=== PATIENT | male | born 1975 | race Caucasian/White ===

== ENCOUNTER 2020-06-07 12:53 | Outpatient (REF) | payer OTHER, SELFPAY | END 2020-06-07 12:54 | disposition home or self-care (01) | LOC: HO.BBR 12:53 | PROVIDERS: PCP Internal Medicine; Visit Provider Internal Medicine | DX: D75.1 Secondary polycythemia (principal) | CPT/HCPCS: 36415; 85014; 85018; 99195 ==

== ENCOUNTER 2020-08-22 14:54 | Outpatient (REF) | payer OTHER, SELFPAY | END 2020-08-22 14:55 | disposition home or self-care (01) | LOC: HO.BBR 14:54 | PROVIDERS: Visit Provider Internal Medicine | DX: D75.1 Secondary polycythemia (principal) | CPT/HCPCS: 36415; 85018; 99195 ==

== ENCOUNTER 2020-10-25 14:02 | Outpatient (REF) | payer OTHER, SELFPAY | END 2020-10-25 14:03 | disposition home or self-care (01) | LOC: HO.BBR 14:02 | PROVIDERS: Visit Provider Internal Medicine | DX: D75.1 Secondary polycythemia (principal) | CPT/HCPCS: 36415; 85014; 85018; 99195 ==

== ENCOUNTER 2021-03-17 14:42 | Outpatient (REF) | payer OTHER, SELFPAY | END 2021-03-17 14:43 | disposition home or self-care (01) | LOC: HO.BBR 14:42 | PROVIDERS: Visit Provider Internal Medicine | DX: D75.1 Secondary polycythemia (principal) | CPT/HCPCS: 85014; 85018; 99195 ==

== ENCOUNTER 2021-06-20 13:49 | Outpatient (REF) | payer OTHER, SELFPAY | END 2021-06-20 13:50 | disposition home or self-care (01) | LOC: HO.BBR 13:49 | PROVIDERS: Visit Provider Internal Medicine | DX: D75.1 Secondary polycythemia (principal) | CPT/HCPCS: 85018; 99195 ==

== ENCOUNTER 2021-09-19 14:07 | Outpatient (REF) | payer OTHER, SELFPAY | END 2021-09-19 14:08 | disposition home or self-care (01) | LOC: HO.BBR 14:07 | PROVIDERS: Visit Provider Internal Medicine | DX: Z13.89 Encounter for screening for other disorder (principal) ==

== ENCOUNTER 2022-01-02 11:10 | Outpatient (REF) | payer OTHER, SELFPAY | END 2022-01-02 11:11 | disposition home or self-care (01) | LOC: HO.BBR 11:10 | PROVIDERS: Visit Provider Internal Medicine | DX: D75.1 Secondary polycythemia (principal) | CPT/HCPCS: 85018; 99195 ==

== ENCOUNTER 2022-03-06 13:51 | Outpatient (REF) | payer OTHER, SELFPAY | END 2022-03-06 13:52 | disposition home or self-care (01) | LOC: HO.BBR 13:51 | PROVIDERS: Visit Provider Internal Medicine | DX: D75.1 Secondary polycythemia (principal) | CPT/HCPCS: 85018; 99195 ==

== ENCOUNTER 2022-08-21 10:56 | Outpatient (REF) | payer OTHER, SELFPAY | END 2022-08-21 10:57 | disposition home or self-care (01) | LOC: HO.BBR 10:56 | PROVIDERS: Visit Provider Internal Medicine | DX: D75.1 Secondary polycythemia (principal) | CPT/HCPCS: 85018; 99195 ==

== ENCOUNTER 2023-01-13 13:34 | Outpatient (REF) | payer OTHER, SELFPAY | END 2023-01-13 13:35 | disposition home or self-care (01) | LOC: HO.BBR 13:34 | PROVIDERS: Visit Provider Internal Medicine | DX: D75.1 Secondary polycythemia (principal) | CPT/HCPCS: 85014; 85018; 99195 ==

== ENCOUNTER 2023-03-26 10:57 | Outpatient (REF) | payer OTHER, SELFPAY | END 2023-03-26 10:58 | disposition home or self-care (01) | LOC: HO.BBR 10:57 | PROVIDERS: Visit Provider Internal Medicine | DX: D75.1 Secondary polycythemia (principal) | CPT/HCPCS: 85018; 99195 ==

== ENCOUNTER 2023-05-24 14:05 | Outpatient (REF) | payer OTHER, SELFPAY | END 2023-05-24 14:06 | disposition home or self-care (01) | LOC: HO.BBR 14:05 | PROVIDERS: Visit Provider Internal Medicine | DX: D75.1 Secondary polycythemia (principal) | CPT/HCPCS: 85018; 99195 ==

== ENCOUNTER 2023-07-30 12:31 | Outpatient (REF) | payer OTHER, SELFPAY | END 2023-07-30 12:32 | disposition home or self-care (01) | LOC: HO.BBR 12:31 | PROVIDERS: Visit Provider Internal Medicine | DX: D75.1 Secondary polycythemia (principal) | CPT/HCPCS: 85014; 85018; 99195 ==

== ENCOUNTER 2023-09-28 13:53 | Outpatient (REF) | payer OTHER, SELFPAY | END 2023-09-28 13:54 | disposition home or self-care (01) | LOC: HO.BBR 13:53 | PROVIDERS: Visit Provider Internal Medicine | DX: D75.1 Secondary polycythemia (principal) | CPT/HCPCS: 85018; 99195 ==

== ENCOUNTER 2023-12-01 14:08 | Outpatient (REF) | payer OTHER, SELFPAY | END 2023-12-01 14:09 | disposition home or self-care (01) | LOC: HO.BBR 14:08 | PROVIDERS: Visit Provider Internal Medicine | DX: D75.1 Secondary polycythemia (principal) | CPT/HCPCS: 85018; 99195 ==

== ENCOUNTER 2024-03-22 13:30 | Outpatient (REF) | payer OTHER, SELFPAY | END 2024-03-22 13:31 | disposition home or self-care (01) | LOC: HO.BBR 13:30 | PROVIDERS: Visit Provider Internal Medicine | DX: D75.1 Secondary polycythemia (principal) | CPT/HCPCS: 85014; 85018; 99195 ==

== ENCOUNTER 2024-05-29 14:07 | Outpatient (REF) | payer OTHER, SELFPAY | END 2024-05-29 14:08 | disposition home or self-care (01) | LOC: HO.BBR 14:07 | PROVIDERS: Visit Provider Internal Medicine | DX: D75.1 Secondary polycythemia (principal) | CPT/HCPCS: 85018; 99195 ==

== ENCOUNTER 2024-07-31 14:01 | Outpatient (REF) | payer OTHER, SELFPAY ==
--- OUTSIDE RECORDS SUMMARY | 2024-07-31 18:31 | XMS_ITS | Clinical Summary ---
Author Organization [facility] Facility Address [address] [place] [address] Care Team Providers Care Roll Scale Man Name Role Phone Viviana Kaur Primary Care Provider [phone] Family History Medical History Relation Comments Hypertension Father Hypertension Mother Kidney disease Mother kidney stones Relation Status Comments Father Mother Social History Tobacco Use Types Packs/Day Years Used Date Smoking Tobacco: Never Alcohol Use Standard Drinks/Week Comments No 0 (1 standard drink = 0.6 oz pur e alcohol) Sex and Gender Information Value Date Recorded Sex Assigned at Not on file Legal Sex Male 5:17 PM EST Gender Identity Not on file Sexual Orientation Not on file Plan of Treatment Health Maintenance Due Date Last Done Comments Hepatitis B Vaccine (1 of 3 - 19+ 3-dose series) 1992 Colorectal Cancer Screening: Annual FOBT 2022 Colorectal Cancer Screening: Colonoscopy 2022 Colorectal Cancer Screening: Sigmoidoscopy 2022 Influenza Vaccine (#1) 2024 Pneumococcal Vaccine: Pediat rics (0 to 5 Years) and At-Risk Patients (6 to 64 Years) Aged Out No longer eligible b ased on patient's age to complete this topic Insurance [facility] Care Teams Roll Scale Man Relationship Specialty Start Date End Date Viviana Kaur PA [address] [facility] 100 [place] [address] PCP - General Urology 06/02/22
--- OUTSIDE RECORDS SUMMARY | 2024-07-31 18:31 | XMS_ITS | Encounter Summary ---
Author Organization [facility] Address [address] [place] [address] Care Team Providers Care Champagne Maker Name Role Phone Samuel Chao MD Primary Care Provider Reason for Visit * Reason Onset Date Comments medication 07/13/2024 Encounter Details Date Type Department Care Team ([facility] Contact Info) Description 07/13/2024 Telephone Gastroenterology - [place] [address] [facility] [address] [place] [phone] Serafin Cui DO [address] [facility] 200 [place] [address] medication Social History Tobacco Use Types Packs/Day Years Used Date Smoking Tobacco: Never Smokeless Tobacco: Never Alcohol Use Standard Drinks/Week Comments No 0 (1 standard drink = 0.6 oz pur e alcohol) Sex and Gender Information Value Date Recorded Sex Assigned at Not on file Gender Identity Not on file Sexual Orientation Not on file documented as of this encounter Progress Notes * Nasreen Sosa MA - 07/14/2024 2:58 PM EST LM for pt to call back. * Marlen Barkley - 07/13/2024 1:47 PM EST The patient is calling stating he thinks he is starting flare up of Diverticulitis and Is asking ifDr. See can prescribe an antibiotic. documented in this encounter Plan of Treatment Upcoming Encounters Date Type Department Care Team (Late Contact Info) Description 01/19/2025 10:00 AM EDT Office Visit [facility] Hematology Oncology [address] [place] [phone] Yara Cortes MD [address] [place] [address] documented as of this encounter Visit Diagnoses Not on filedocumented in this encounter Care Teams Champagne Maker Relationship Specialty Start Date End Date Samuel Chao MD [address] [place] [address] PCP - General Internal Medicine 05/08/19 documented as of this encounter
--- OUTSIDE RECORDS SUMMARY | 2024-07-31 18:31 | XMS_ITS | Encounter Summary ---
Author Organization [employer] Address [address] [facility] 7t [place] [address] Care Team Providers Care Rail Bonder Name Role Phone Unavailable Primary Care Provider Unavailabl e Encounter Details Date Type Department Care Team (Latest Contact Info) Description 05/03/2020 Abstract [facility] Dental, Provider, DDS Social History Tobacco Use Types Packs/Day Years Used Date Smoking Tobacco: Never Assessed Sex and Gender Information Value Date Recorded Sex Assigned at Male 11/05/2022 11:37 AM EDT Legal Sex Male 5:34 PM EDT Gender Identity Male 11/05/2022 11:37 AM EDT Sexual Orientation Straight 11/05/2022 11 :37 AM EDT documented as of this encounter Plan of Treatment Not on file documented as of this encounter Visit Diagnoses Not on filedocumented in this encounter
--- OUTSIDE RECORDS SUMMARY | 2024-07-31 18:31 | XMS_ITS | Encounter Summary ---
Author Organization [facility] Address [address] [place] [address] Care Team Providers Care Artillery Specialist Name Role Phone Samuel Chao MD Primary Care Provider Encounter Details Date Type Department Care Team (Late Contact Info) Description 06/02/2024 Lab Requisition [facility] - Main Lab [address] [facility] [place] [phone] Brent North PA [address] [place] [phone] Benign essential microscopic hematuria Social History Tobacco Use Types Packs/Day Years Used Date Smoking Tobacco: Never Smokeless Tobacco: Never Alcohol Use Standard Drinks/Week Comments No 0 (1 standard drink = 0.6 oz pur e alcohol) Sex and Gender Information Value Date Recorded Sex Assigned at Not on file Gender Identity Not on file Sexual Orientation Not on file documented as of this encounter Plan of Treatment Upcoming Encounters Date Type Department Care Team (Late Contact Info) Description 01/19/2025 10:00 AM EDT Office Visit [facility] Hematology Oncology [address] [place] [phone] Yara Cortes MD [address] [place] [address] documented as of this encounter Procedures Procedure Name Priority Date/Time Associated Diagnosis Comments AP OUTSIDE CONSULT Routine 05/24/2024 12 :00 AM EST Benign essential microscopic hematuria documented in this encounter Results * Anatomic pathology outside consult (05/24/2024 12:00 AM EST) Final Diagnosis Urine, Voided: Negative for high grade urothelial carcinoma. 06/08/2024 4:53 PM EST [facility] Clinical Information [id number] Cytology w/Reflex UroVysion (AUC/SHGUC) 06/08/2024 4:53 PM EST [facility] Gross Description A. Urine, Voided, : [id number] Cytology w/Reflex UroVysion (AUC/SHGUC) 06/08/2024 4:53 PM EST [facility] Disclaimer Unless otherwise specified, all tissue is 10% NB formalin fixed and paraffin embedded. 06/08/2024 4:[address] [facility] Tissue Urine specimen from urethra / Unknown 05/24/2024 06/02/2024 9:26 AM EST Brent [facility] PATHOLOGY ORDERABLES [facility] [address] [place] [address], documented in this encounter Visit Diagnoses Diagnosis Benign essential microscopic hematuria documented in this encounter Care Teams Artillery Specialist Relationship Specialty Start Date End Date Samuel Chao MD [address] [place] [address] PCP - General Internal Medicine 05/08/19 documented as of this encounter
--- OUTSIDE RECORDS SUMMARY | 2024-07-31 18:31 | XMS_ITS | Encounter Summary ---
Author Organization [employer] Address [address] [facility] 7t [place] [address] Care Team Providers Care Business Practices Supervisor Name Role Phone Unavailable Primary Care Provider Unavailabl e Encounter Details Date Type Department Care Team (Latest Contact Info) Description 06/19/2021 Abstract [facility] Dental, Provider, DDS Social [...]
--- OUTSIDE RECORDS SUMMARY | 2024-07-31 18:31 | XMS_ITS | Clinical Summary ---
Author Organization [address] Address [address] [place] [phone] Phone Care Team Providers Care Spinner Box Name Role Phone Samuel Chao MD Primary Care Provider Allergies Active Allergy Reactions Criticality Noted Date Comments Julio Inhibitors 02/04/2017 Hydrochlorothiazide 02/04/2017 Ibuprofen-Oxycodone 02/04/2017 Potassium Citrate 02/04/2017 Prochlorperazine Other High 02/04/2017 Medications Medication Sig Dispensed Refills Start Date End Date Status allopurinoL (ZYLOPRIM) 300 mg tablet Take 1 tablet (300 mg total) by mouth daily. Active amLODIPine (NORVASC) 5 mg tablet Take 1 tablet (5 mg total) by mouth daily. Active CHLORTHALIDONE ORAL Take 25 mg by mouth daily. Active losartan (COZAAR) 100 mg tablet Take 1 tablet (100 mg total) by mouth daily. Active Encounters Date Type Department Care Team Description 07/13/2024 Telephone Gastroenterology - [place] 175 [facility] 175 [facility] [address] [place] [address] Serafin Cui DO medication 06/02/[address] [facility] - Main Lab 299 [facility] [place] [address] Brent North PA Benign essential microscopic hematuria from Last 3 Months Surgical History Surgery Date Site/Laterality Comments APPENDECTOMY PROCEDURE:APPENDECTOMY COLONOSCOPY PROCEDURE:COLONOSCOPY LITHOTRIPSY PROCEDURE:LITHOTRIPSY Medical History Medical History Date Comments Primary polycythemia (CMS/HCC) D X:Primary polycythemia (HCC) SOB (shortness of breath) DX:SOB (shortness of breath) Hypercholesterolemia DX:Hypercho lesterolemia Fatigue DX:Fatigue Diverticulitis of colon DX:Diver ticulitis of colon Dermatitis DX:Dermatitis Kidney stones DX:Kidney stones Family History Medical History Relation Name Comments Hypertension Father Hypertension Mother Hypertension Paternal Grandfather Relation Name Status Comments Father Mother Paternal Grandfather Social History Tobacco Use Types Packs/Day Years Used Date Smoking Tobacco: Never Smokeless Tobacco: Never Alcohol Use Standard Drinks/Week Comments No 0 (1 standard drink = 0.6 oz pur e alcohol) Sex and Gender Information Value Date Recorded Sex Assigned at Not on file Gender Identity Not on file Sexual Orientation Not on file Obstetrics History Last Filed Vital Signs Vital Sign Reading Time Taken Comments Blood Pressure 142/98 03/16/2024 10:46 AM EDT Sitting L Arm Pulse 72 03/16/2024 10:46 AM EDT Temperature - - Respiratory Rate - - Oxygen Saturation - - Inhaled Oxygen Concentration - - Weight 89.3 kg (196 lb 12.8 oz) 03/16/2024 10:46 AM EDT Height 175.3 cm (5' 9 ) 03/16/2024 10:4 6 AM EDT Body Mass Index 29.06 03/16/2024 10:46 AM EDT Plan of Treatment Upcoming Encounters Date Type Department Care Team (Late st Contact Info) Description 01/19/2025 10:00 AM EDT Office Visit [facility] Hematology Oncology [address] [place] [phone] Yara Cortes MD [address] [place] [address] Health Maintenance Due Date Last Done Comments COVID-19 Vaccine (#1) 1978 Pneumococcal Vaccine: Pediat rics (0 to 5 Years) and At-Risk Patients (6 to 64 Years) (1 of 2 - PCV) 11/26/1979 DTaP,Tdap,and Td Vaccines (1 - Tdap) 1992 Hepatitis B Vaccines (1 of 3 - 19+ 3-dose series) 1992 Zoster Vaccines (1 of 2) 1992 Cholesterol Screening (Lipid Panel) 06/14/2022 Colorectal Cancer Screening: Colonoscopy 06/14/2022 Depression Screening 06/14/2022 HIV Screening 06/14/2022 Hepatitis C Screening 06/14/2022 Medicare Annual Wellness Visit 06/14/2022 Social Influencers of Health Screening 06/14/2022 Hypertension/CHF/CAD Annual BMP Blood Test 06/18/2022 Influenza Vaccine (#1) 2024 HIB Vaccines Aged Out No longer eligi ble based on patient's age to complete this topic HPV Vaccines Aged Out No longer eligi ble based on patient's age to complete this topic Hepatitis A Vaccines Aged Out No long er eligible based on patient's age to complete this topic IPV Vaccines Aged Out No longer eligi ble based on patient's age to complete this topic MMR Vaccines Aged Out No longer eligi ble based on patient's age to complete this topic Meningococcal ACWY Vaccine Aged Out N o longer eligible based on patient's age to complete this topic RSV Immunization Patients Un rebecca 20 months Aged Out No longer eligible b ased on patient's age to complete this topic Varicella Vaccines Aged Out No longer eligible based on patient's age to complete this topic Procedures Procedure Name Priority Date/Time Associated Diagnosis Comments AP OUTSIDE CONSULT Routine 05/24/2024 12 :00 AM EST Benign essential microscopic hematuria from Last 3 Months Results * Anatomic pathology outside consult (05/24/2024 12:00 AM EST) Final Diagnosis Urine, Voided: Negative for high grade urothelial carcinoma. 06/08/2024 4:53 PM [facility] Clinical Information [id number] Cytology w/Reflex UroVysion (AUC/SHGUC) 06/08/2024 4:53 PM [facility] Gross Description A. Urine, Voided, : [id number] Cytology w/Reflex UroVysion (AUC/SHGUC) 06/08/2024 4:53 PM [facility] Disclaimer Unless otherwise specified, all tissue is 10% NB formalin fixed and paraffin embedded. 06/08/2024 4:53 PM [facility] Tissue Urine specimen from urethra / Unknown 05/24/2024 06/02/2024 9:26 AM EST Brent [facility] PATHOLOGY ORDERABLES [facility] ([facility]) [facility] [address] [place] [address], from Last 3 Months Care Teams Spinner Box Relationship Specialty Start Date End Date Samuel Chao MD [address] [place] [address] PCP - General Internal Medicine 05/08/19
--- OUTSIDE RECORDS SUMMARY | 2024-07-31 18:31 | XMS_ITS | Encounter Summary ---
Author Organization [employer] Address [address] [facility] 7t [place] [address] Care Team Providers Care Junior Network Administrator Name Role Phone Unavailable Primary Care Provider Unavailabl e Encounter Details Date Type Department Care Team (Latest Contact Info) Description 12/17/2020 Abstract [facility] Dental, Provider, DDS Social [...]
--- OUTSIDE RECORDS SUMMARY | 2024-07-31 18:31 | XMS_ITS | Clinical Summary ---
Author Organization [facility] Address [address] [place], [place] [id number] Care Team Providers Care Director Advertising Name Role Phone Samuel Chao MD Primary Care Provider [phone] Allergies Active Allergy Reactions Criticality Noted Date Comments Julio Inhibitors 02/04/2017 Prochlorperazine Other (See Comments) High 7 Potassium Citrate 02/04/2017 Hydrochlorothiazide 02/04/2017 Oxycodone-Ibuprofen 02/04/2017 Medications Medication Sig Dispensed Refills Start Date End Date Status losartan (COZAAR) 100 MG tablet Take 1 tablet (100 mg total) by mouth daily. 0 Active CHLORTHALIDONE POIndications:1/2 a tab daily Take 25 mg by mouth daily. 0 Active allopurinol (ZYLOPRIM) 300 MG tablet Take 1 tablet (300 mg total) by mouth daily. 0 Active amLODIPine (NORVASC) tablet 5 mg Take 1 tablet (5 mg total) by mouth daily. 0 Active Active Problems No known active problems Family History Medical History Relation Name Comments [...] on file Sexual Orientation Not on file Job Start Date Occupation Industry Not on file Not on file Not on file Last Filed Vital Signs Vital Sign Reading Time Taken Comments Blood Pressure 135/80 01/19/2024 9:52 AM EDT Pulse 62 01/19/2024 9:52 AM EDT Temperature 36.8 ??C (98.3 ??F) 01/19/2024 9:52 AM ED T Respiratory Rate - - Oxygen Saturation 98% 01/19/2024 9:52 AM EDT Inhaled Oxygen Concentration - - Weight 87.5 kg (193 lb) 01/19/2024 9:52 AM EDT Height 177.8 cm (5' 10 ) 01/13/2023 12:00 PM EDT Body Mass Index 27.69 01/13/2023 12:00 PM EDT Plan of Treatment Health Maintenance Due Date Last Done Comments Hepatitis C Screening 1973 COVID-19 Vaccine (#1) 1978 Pneumococcal Vaccine (1 of 2 - PCV) 11/26/1979 Depression Screening 1985 Preventative Health Evaluation 11/26/1991 DTap / Tdap / Td (1 - Tdap) 1992 Shingrix-Zoster Vaccine (1 o f 2) 1992 Colon Cancer Screening (Colonoscopy) 2018 Influenza Vaccine (#1) 2024 Hepatitis B Vaccines Completed 03/16/2016, 08/14/2015, 07/16/2015 RSV Ped < 20 months Aged Out No longe r eligible based on patient's age to complete this topic Care Teams Director Advertising Relationship Specialty Start Date End Date Samuel Chao MD PCP - General Internal Medicine 02/02/17
--- OUTSIDE RECORDS SUMMARY | 2024-07-31 18:31 | XMS_ITS | Clinical Summary ---
Author Organization [employer] Address [address] [facility] 7t [place] [address] Care Team Providers Care Microbiology Supervisor Name Role Phone Unavailable Primary Care Provider Unavailabl e Allergies No known active allergies Medications losartan (Cozaar) 100 MG tablet Take 100 mg by mouth in the morning. 08/07/2022 Active ibuprofen 200 MG tablet Take 600 mg by mouth. 04/14/2021 Active losartan (Cozaar) 100 MG tablet Take 100 mg by mouth. 03/14/2021 Active Social History Tobacco Use Types Packs/Day Years Used Date Smoking Tobacco: Never Assessed Sex and Gender Information Value Date Recorded Sex Assigned at Male 11/05/2022 11:37 AM EDT Legal Sex Male 5:34 PM EDT Gender Identity Male 11/05/2022 11:37 AM EDT Sexual Orientation Straight 11/05/2022 11 :37 AM EDT Plan of Treatment Health Maintenance Due Date Last Done Comments CT Colonography 1973 Colonoscopy 1973 Colorectal Cancer Screening 1973 Depression Screening 1973 FIT DNA/Cologuard 1973 FIT 1973 FOBT 1973 HIV Screening 1973 Lipid Panel 1973 SDOH Screening 1973 Sigmoidoscopy 1973 Alcohol/Substance Use Screening 1985 Tobacco Screening 1985 Family Planning (PISQ) 1988 Hepatitis C Screening 11/26/1991 Dental X-Ray: Full Mouth 05/04/2023 05/03/2020, 10/03 Dental Oral Exam 05/24/2023 11/20/2022, , 12/17/2020, Additional history exists Dental Prophylaxis 05/24/2023 11/20/2022, 1 08/20/2020, 12/17/2020, Additional history exists Dental X-Ray: Bitewings 11/22/2023 11/21/19 23, 06/19/2021, 05/03/2020, Additional history exists Zoster Vaccines (1 of 2) 11/26/2023 COVID-19 Vaccine (3 - season) 2024 08/14/2020, 07/17/2020 Influenza Vaccine (#1) 2024 DTaP/Tdap/Td Vaccines (2 - Td or Tdap) 12/16/2030 12/16/2020 RSV Patients and Patients Aged 60 years or older (1 - 1-dose 75+ series) 2048 Hepatitis A Vaccines Completed 03/16/2016, 08/14/2015, 07/16/2015 Hepatitis B Vaccines Completed 03/16/2016, 08/14/2015, 07/16/2015 HIB Vaccines Aged Out No longer eligi ble based on patient's age to complete this topic HPV Vaccines Aged Out No longer eligi ble based on patient's age to complete this topic IPV Vaccines Aged Out No longer eligi ble based on patient's age to complete this topic Meningococcal Vaccine Aged Out No anita martin eligible based on patient's age to complete this topic Pneumococcal Vaccine: Pediatrics (0 to 5 Years) and At-Risk Patients (6 to 64 Years) Aged Out No longer eligible based on patient's age to complete this topic RSV under 20 months Aged Out No longe r eligible based on patient's age to complete this topic Rotavirus Vaccines Aged Out No longer eligible based on patient's age to complete this topic Procedures Procedure Name Priority Date/Time Associated Diagnosis Comments Full PROPHYLAXIS - ADULT Routine 023 12:00 PM EDT BITEWINGS - 4 RADIOGRAPHIC IMAGES Routine 11/20/2022 12:00 PM EDT PERIODIC ORAL EVALUATION - ESTABLISHED PATIENT Routine 11/20/2022 12:00 PM EDT DIAGNOSTIC - DIAGNOSTIC IMAGING - INTRAORAL - COMPREHENSIVE SERIES OF RADIOGRAPHIC IMAGES Routine 05/03/2020 12:00 AM EDT from Last 3 Months or Most Recently Relevant to Health Maintenance Insurance [facility]
== END 2024-07-31 14:02 | disposition home or self-care (01) ==
LOC: HO.BBR 14:01
PROVIDERS: Visit Provider Internal Medicine
DX: D75.1 Secondary polycythemia (principal)
CPT/HCPCS: 85018; 99195

== ENCOUNTER 2024-09-29 12:55 | Outpatient (REF) | payer OTHER, SELFPAY | END 2024-09-29 12:56 | disposition home or self-care (01) | LOC: HO.BBR 12:55 | PROVIDERS: Visit Provider Internal Medicine | DX: D75.1 Secondary polycythemia (principal) | CPT/HCPCS: 85014; 85018; 99195 ==

== ENCOUNTER 2024-12-01 13:59 | Outpatient (REF) | payer OTHER, SELFPAY ==
--- OUTSIDE RECORDS SUMMARY | 2024-12-01 14:02 | XMS_ITS | Clinical Summary ---
Author Organization [address] Address [address] [place] [phone] Phone Care Team Providers Care Machine Shop Supervisor Name Role Phone Samuel Chao MD Primary Care Provider Allergies Active Allergy Reactions Criticality Noted Date Comments Julio Inhibitors 02/04/2017 Hydrochlorothiazide 02/04/2017 Ibuprofen-Oxycodone 02/04/2017 Potassium Citrate 02/04/2017 Prochlorperazine Other High 02/04/2017 Medications allopurinoL (ZYLOPRIM) 300 mg tablet Take 1 tablet (300 mg total) by mouth daily. Active amLODIPine (NORVASC) 5 mg tablet Take 1 tablet (5 mg total) by mouth daily. Active CHLORTHALIDONE ORAL Take 25 mg by mouth daily. Active losartan (COZAAR) 100 mg tablet Take 1 tablet (100 mg total) by mouth daily. Active Surgical History Surgery Date Site/Laterality Comments APPENDECTOMY PROCEDURE:APPENDECTOMY COLONOSCOPY PROCEDURE:COLONOSCOPY LITHOTRIPSY PROCEDURE:LITHOTRIPSY Medical History Medical History Date Comments Primary polycythemia (CMS/HCC V24, CMS/HCC V28) DX:Primary polycythemia (HCC) SOB (shortness of breath) DX:SOB [...] at Not on file Legal Sex Male 8:52 AM EST Gender Identity Not on file Sexual [...] Description 01/19/2025 10:00 AM EDT Office Visit [facility] Hematology Oncology [address] [place] [address] Yara Cortes MD [address] [place] [address] Health Maintenance Due Date Last Done Comments COVID-19 Vaccine (#1) 1978 DTaP,Tdap,and Td Vaccines (1 - Tdap) 1992 Hepatitis B Vaccines (1 of 3 - 19+ 3-dose series) 1992 Pneumococcal Vaccine: 50+ Ye ars (1 of 2 - PCV) 1992 Pneumococcal Vaccine: Pediat rics (0 to 5 Years) and At-Risk Patients (6 to 64 Years) (1 of 2 - PCV) 1992 Zoster Vaccines (1 of 2) 1992 Cholesterol Screening (Lipid Panel) 06/14/2022 Colorectal Cancer Screening: Colonoscopy 06/14/2022 Depression Screening 06/14/2022 HIV Screening 06/14/2022 Hepatitis C Screening 06/14/2022 Medicare Annual Wellness Visit 06/14/2022 Social Influencers of Health Screening 06/14/2022 Hypertension/CHF/CAD Annual BMP Blood Test 06/18/2022 Influenza Vaccine (Season Ended) 2025 HIB Vaccines Aged Out No longer eligi [...] patient's age to complete this topic Meningococcal B Vaccine Aged Out No l onger eligible based on patient's age to complete this topic RSV Immunization Patients Un rebecca 20 months Aged Out No longer eligible b ased on patient's age to complete this topic Varicella Vaccines Aged Out No longer eligible based on patient's age to complete this topic Insurance [employer] Care Teams Machine Shop Supervisor Relationship Specialty Start Date End Date Samuel Chao MD [address] [place] [address] PCP - General Internal Medicine 05/08/19
== END 2024-12-01 14:00 | disposition home or self-care (01) ==
LOC: HO.BBR 13:59
PROVIDERS: Visit Provider Internal Medicine
DX: D45 Polycythemia vera (principal)
CPT/HCPCS: 85018; 99195

== ENCOUNTER 2025-02-09 13:06 | Outpatient (REF) | payer OTHER, SELFPAY ==
--- OUTSIDE RECORDS SUMMARY | 2025-02-09 13:07 | XMS_ITS | Clinical Summary ---
Author Organization [facility] Facility Address [address] [place] [address] Care Team Providers Care Private Wealth Advisor Name Role Phone Viviana Kaur Primary Care Provider [phone] Family History Medical History Relation Comments Hypertension [...] (1 of 3 - 19+ 3-dose series) 11/25 Colorectal Cancer Screening: Annual FOBT 2022 Colorectal Cancer Screening: Colonoscopy 2022 Colorectal Cancer Screening: Sigmoidoscopy 2022 Pneumococcal Vaccine: 50+ Years (1 of 1 - PCV) 024 Influenza Vaccine (#1) 2025 Insurance [facility] Care Teams Private Wealth Advisor Relationship Specialty Start Date End Date Viviana Kaur PA 100 [facility] 100 [place] [address] PCP - General Urology 06/02/22
--- OUTSIDE RECORDS SUMMARY | 2025-02-09 13:07 | XMS_ITS | Clinical Summary ---
Author Organization [facility] Address [address] [place] [address] Phone Care Team Providers Care Industrial Editor Name Role Phone Samuel Chao MD Primary Care Provider [phone] Allergies Active Allergy Reactions Criticality Noted Date Comments Julio Inhibitors 02/04/2017 Hydrochlorothiazide 02/04/2017 Ibuprofen-Oxycodone 02/04/2017 Potassium Citrate 02/04/2017 Prochlorperazine Other High 02/04/2017 Medications amLODIPine (NORVASC) 5 mg tablet Take 1 tablet (5 mg total) by mouth daily. Active losartan (COZAAR) 100 mg tablet Take 1 tablet (100 mg total) by mouth daily. Active allopurinoL (ZYLOPRIM) 300 mg tablet Take 1 tablet (300 mg total) by mouth daily. 01/26/20 25 Discontinued CHLORTHALIDONE ORAL Take 25 mg by mouth daily. 01/26/20 25 Discontinued Encounters Date Type Department Care Team Description 01/25/2025 10:15 AM EDT Office Visit [facility] Hematology Oncology [address] [place] [address] Yara Cortes MD Polycythemia (Primary Dx) 12/11/2024 Telephone [facility] Hematology Oncology [address] [place] [phone] Yara Cortes MD from Last 3 Months Surgical History Surgery [...] Date Smoking Tobacco: Never Smokeless Tobacco: Never Tobacco Cessation:Counseling Given: Not Answered Alcohol Use Standard Drinks/Week Comments No 0 (1 standard drink = 0.6 oz pur e alcohol) Sex and Gender Information Value Date Recorded Sex Assigned at Not on file Legal Sex Male 8:52 AM EST Gender Identity Not on file Sexual Orientation Not on file Obstetrics History Last Filed Vital Signs Vital Sign Reading Time Taken Comments Blood Pressure 136/85 01/25/2025 10:15 AM EDT Pulse 61 01/25/2025 10:15 AM EDT Temperature 36.7 C (98.1 F) 01/25/2025 10:15 AM EDT Respiratory Rate - - Oxygen Saturation 99% 01/25/2025 10:15 AM EDT Inhaled Oxygen Concentration - - Weight 90.7 kg (200 lb) 01/25/2025 10:15 AM EDT Height 175.3 cm (5' 9 ) 01/25/2025 10:15 AM EDT Body Mass Index 29.53 01/25/2025 10:15 AM EDT Plan of Treatment Upcoming Encounters Date Type Department Care Team (Late st Contact Info) Description 01/25/2026 11:00 AM EDT Office Visit [facility] Hematology Oncology [address] [place] [phone] Yara Cortes MD [address] [place] [address] Health Maintenance Due Date Last Done Comments Zoster Vaccines (1 of 2) 1992 COVID-19 Vaccine (3 - Modern a risk series) 09/11/2020 08/14/2020, 07/17/2020 Cholesterol Screening (Lipid Panel) 06/14/2022 Colorectal Cancer Screening: Colonoscopy 06/14/2022 HIV Screening 06/14/2022 Hepatitis C Screening 06/14/2022 Social Influencers of Health Screening 06/14/2022 Hypertension/CHF/CAD Annual BMP Blood Test 06/18/2022 Pneumococcal Vaccine: 50+ Years (1 of 1 - PCV) 11/26/2023 Depression Screening 07/05/2024 Influenza Vaccine (#1) 2025 DTaP,Tdap,and Td Vaccines (2 - Td or Tdap) 12/16/2030 12/16/2020 Hepatitis A Vaccines Completed 03/16/2016, 08/14/2015, 07/16/2015 [...] to complete this topic RSV Immunization Patients Under 20 months Aged Out No longer eligible b ased on patient's age to complete this topic Varicella Vaccines Aged Out No longer eligible based on patient's age to complete this topic Procedures Procedure Name Priority Date/Time Associated Diagnosis Comments CBC WITH AUTO DIFFERENTIAL Routine 01/25/2025 10:33 AM EDT Polycythemia ERYTHROPOIETIN Routine 01/25/2025 10:33 AM EDT Polycythemia CBC AND DIFFERENTIAL Routine 01/25/2025 10:33 AM EDT Polycythemia ..MISCELLANEOUS REFERENCE LAB TEST 01/19/2025 ..MISCELLANEOUS REFERENCE LAB TEST 01/19/2025 ..MISCELLANEOUS REFERENCE LAB TEST 01/19/2025 from Last 3 Months Results * (ABNORMAL) CBC auto differential (01/25/2025 10:33 AM EDT) WBC 6.9 4.8 - 10.8 K/[facility] LAB HEMETOLOGY METHOD 01/25/2025 10:58 AM [facility] RBC 5.80(H) 4.50 - 5.50 M/mcL LAB HEMETOLOGY METHOD 01/25/2025 10:58 AM [facility] Hemoglobin 17.2 13.5 - 17.5 g/dL LAB HEMETOLOGY METHOD 01/25/2025 10:58 AM [facility] Hematocrit 50.3 42.0 - 54.0 % LAB HEMETOLOGY METHOD 01/25/2025 10:58 AM [facility] MCV 86.3 79.0 - 98.0 FL LAB HEMETOLOGY METHOD 01/25/2025 10:58 AM [facility] MCH 29.5 27.0 - 32.0 pcg LAB HEMETOLOGY METHOD 01/25/2025 10:58 AM [facility] MCHC 34.2 32.0 - 37.0 g/dL LAB HEMETOLOGY METHOD 01/25/2025 10:58 AM [facility] RDW 13.6 11.0 - 15.0 % LAB HEMETOLOGY METHOD 01/25/2025 10:58 AM [facility] Platelets 181 130 - 400 K/mcL LAB HEMETOLOGY METHOD 01/25/2025 10:58 AM [facility] MPV 11.8(H) 7.0 - 11.0 FL LAB HEMETOLOGY METHOD 01/25/2025 10:58 AM [facility] NRBC 0.0 <1.0 % LAB HEMETOLOGY METHOD 01/25/2025 10:58 AM [facility] NRBC Absolute 0.00 <0.10 K/mcL LAB HEMETOLOGY METHOD 01/25/2025 10:58 AM [facility] Neutrophils Relative 57.9 % LAB HEMETOLOGY METHOD 01/25/2025 10:58 AM [facility] Lymphocytes Relative 25.3 % LAB HEMETOLOGY METHOD 01/25/2025 10:58 AM [facility] Monocytes Relative 10.7 % LAB HEMETOLOGY METHOD 01/25/2025 10:58 AM [facility] Eosinophils Relative 4.3 % LAB HEMETOLOGY METHOD 01/25/2025 10:58 AM [facility] Basophils Relative 1.2 % LAB HEMETOLOGY METHOD 01/25/2025 10:58 AM [facility] Immature Granulocytes Relative 0.6 % LAB HEMETOLOGY METHOD 01/25/2025 10:58 AM [facility] Neutrophils Absolute 4.00 1.50 - 7.00 K/mcL LAB HEMETOLOGY METHOD 01/25/2025 10:58 AM [facility] Lymphocytes Absolute 1.75 1.00 - 5.00 K/mcL LAB HEMETOLOGY METHOD 01/25/2025 10:58 AM [facility] Monocytes Absolute 0.74 0.20 - 1.00 K/mcL LAB HEMETOLOGY METHOD 01/25/2025 10:58 AM [facility] Eosinophils Absolute 0.30 0.00 - 0.50 K/mcL LAB HEMETOLOGY METHOD 01/25/2025 10:58 AM [facility] Basophils Absolute 0.08 0.00 - 0.20 K/mcL LAB HEMETOLOGY METHOD 01/25/2025 10:58 AM [facility] Immature Granulocytes Absolute 0.04(H) 0.00 - 0.03 K/mcL LAB HEMETOLOGY METHOD 01/25/2025 10:58 AM [facility] Blood Venous blood specimen / Unknown Venipuncture / Unknown 01/25/2025 10:33 AM EDT 01/25/2025 10:50 AM EDT Yara Cortes MD LAB BLOOD ORDERABLES Final R esult [facility] [place] [facility] [address] [place] [address], [place] [phone] * Erythropoietin (01/25/2025 10:33 AM EDT) [facility] Signature Erythropoietin 9.5 2.6 - 18.5 mIU/mL 01/29/2025 10:58 PM EDT [facility] Comment: Test performed at [facility], [address], [place] [address] Umu Plata MD, PhD - Book Coverer Blood Venous blood specimen / Unknown Venipuncture / Unknown 01/25/2025 10:33 AM EDT 01/25/2025 1:26 PM EDT Yara Cortes MD LAB BLOOD ORDERABLES Final R esult [facility] [address] [place] [address] * Miscellaneous reference lab test (01/19/2025) Only the most recent of3 resultswithin the time period is included. Provider Onbase LAB BLOOD ORDERABLES Final Re sult from Last 3 Months Insurance [facility] PUBLIC PL[employer] Care Teams Industrial Editor Relationship Specialty Start Date End Date Samuel Chao MD [address] [place] [address] PCP - General Internal Medicine 05/08/19
--- OUTSIDE RECORDS SUMMARY | 2025-02-09 13:07 | XMS_ITS | Clinical Summary ---
Author Organization [facility] Address [address] [facility] [address]t [place] [address] Care Team Providers Care Piano Case And Bench Assembler Name Role Phone Unavailable Primary Care Provider [...] Panel 1973 SDOH Screening 1973 Sigmoidoscopy 1973 Disability Screening 1973 Alcohol/Substance Use Screening 1985 Tobacco Screening 1985 Family Planning (PISQ) 1988 Hepatitis C Screening 11/26/1991 Dental X-Ray: Full Mouth 05/04/2023 05/03/2020, 10/03 Dental Oral Exam 05/24/2023 11/20/2022, , 12/17/2020, Additional history exists Dental Prophylaxis 05/24/2023 11/20/2022, 1 08/20/2020, 12/17/2020, Additional history exists Dental X-Ray: Bitewings 11/22/2023 11/21/19 23, 06/19/2021, 05/03/2020, Additional history exists Pneumococcal Vaccine: 50+ Years (1 of 1 - PCV) 11/26/2023 Zoster Vaccines (1 of 2) 11/26/2023 COVID-19 Vaccine (3 - 2023- season) 2024 08/14/2020, 07/17/2020 Influenza Vaccine (#1) 2025 DTaP/Tdap/Td Vaccines (2 - Td or Tdap) [...] ESTABLISHED PATIENT Routine 11/20/2022 12:00 PM EDT INTRAORAL - COMPLETE SERIES OF RADIOGRAPHIC IMAGES Routine 05/03/2020 12:00 AM EDT from Last 3 Months or Most Recently Relevant to Health Maintenance Insurance [facility]
--- OUTSIDE RECORDS SUMMARY | 2025-02-09 13:07 | XMS_ITS | Encounter Summary ---
Author Organization [facility] Address [address] [place] [address] Care Team Providers Care Wrap Knitting Machine Operator Name Role Phone Samuel Chao Primary Care Provider Mony zheng Encounter Details Date Type Department Care Team Description 04/18/2024 Transfer Records Medical Records [address] [place] [phone] Gastroenterology, [facility] Social History Tobacco Use Types Packs/Day Years Used Date Smoking Tobacco: Never Smokeless Tobacco: Never Sex Assigned at Date Recorded Not on file Job Start Date Occupation Industry Not on file Not on file Not on file documented as of this encounter Plan of Treatment Not on file documented as of this encounter Visit Diagnoses Not on filedocumented in this encounter Care Teams Wrap Knitting Machine Operator Relationship Specialty Start Date End Date Samuel Chao PCP - General Internal Medicine 05/08/19 documented as of this encounter
--- OUTSIDE RECORDS SUMMARY | 2025-02-09 13:07 | XMS_ITS | Clinical Summary ---
Author Organization [facility] Address [address] [place], [place] [id number] Care Team Providers Care Two Needle Machine Operator Name Role Phone Samuel Chao MD Primary Care Provider [phone] Allergies Active Allergy Reactions Criticality Noted Date [...] 62 01/19/2024 9:52 AM EDT Temperature 36.8 C (98.3 F) 01/19/2024 9:52 AM EDT Respiratory Rate - - Oxygen Saturation 98% 01/19/2024 9:52 AM EDT Inhaled Oxygen Concentration - - Weight 87.5 kg (193 lb) 01/19/2024 9:52 AM EDT Height 177.8 cm (5' 10 ) 01/13/2023 12:00 PM EDT Body Mass Index 27.69 01/13/2023 12:00 PM EDT Plan of Treatment Health Maintenance Due Date Last Done Comments Hepatitis C Screening 1973 COVID-19 Vaccine (#1) 05/28/1974 Depression Screening 1985 Preventative Health Evaluation 11/26/1991 DTap / Tdap / Td (1 - Tdap) 1992 Colon Cancer Screening (Colonoscopy) 2018 Shingrix-Zoster Vaccine (1 o f 2) 11/26/2023 Influenza Vaccine (#1) 2025 Hepatitis B Vaccines Completed 03/16/2016, 08/14/2015, 07/16/2015 Pneumococcal Vaccine Aged Out No long er eligible based on patient's age to complete this topic RSV Ped < 20 months Aged Out No longe r eligible based on patient's age to complete this topic Care Teams Two Needle Machine Operator Relationship Specialty Start Date End Date Samuel Chao MD PCP - General Internal Medicine 02/02/17
== END 2025-02-09 13:07 | disposition home or self-care (01) ==
LOC: HO.BBR 13:06
PROVIDERS: Visit Provider Internal Medicine
DX: D45 Polycythemia vera (principal)
CPT/HCPCS: 85018; 99195

== ENCOUNTER 2025-04-13 13:07 | Outpatient (REF) | payer OTHER, SELFPAY | END 2025-04-13 13:08 | disposition home or self-care (01) | LOC: HO.BBR 13:07 | PROVIDERS: Visit Provider Internal Medicine | DX: D45 Polycythemia vera (principal) | CPT/HCPCS: 85018; 99195 ==

== ENCOUNTER 2025-06-15 13:08 | Outpatient (REF) | payer OTHER, SELFPAY ==
--- OUTSIDE RECORDS SUMMARY | 2025-06-15 18:44 | XMS_ITS | Encounter Summary ---
Author Organization [facility] Address [address] [place] [address] Care Team Providers Care Guide Delegate Name Role Phone Samuel Chao MD Primary Care Provider Encounter Details Date Type Department Care Team ([facility] Contact Info) Description 06/02/2024 Lab Requisition [facility] - Main Lab [address] [facility] [place] [phone] [place] [address] [place] [address] Benign essential microscopic hematuria Social History Tobacco [...] Upcoming Encounters Date Type Department Care Team ([facility] Contact Info) Description 01/25/2026 11:00 AM EDT Office Visit [facility] Hematology Oncology [address] [place] [phone] Yara Cortes MD [address] [place] [address] documented as of this encounter Procedures Procedure Name Priority Date/Time Associated Diagnosis Comments AP OUTSIDE CONSULT Routine 05/24/2024 12 :00 AM EST Benign essential microscopic hematuria documented in this encounter Results * Anatomic pathology outside consult (05/24/2024 12:00 AM EST) Final Diagnosis Urine, Voided: Negative for high grade urothelial carcinoma. 06/08/2024 4:53 PM EST [facility] at 1652 EST Clinical Information [id number] Cytology w/Reflex UroVysion (AUC/SHGUC) 06/08/2024 4:53 PM EST [facility] Gross Description A. Urine, Voided, : [id number] Cytology w/Reflex UroVysion (AUC/SHGUC) 06/08/2024 4:53 PM EST [facility] Disclaimer Unless otherwise specified, all tissue is 10% NB formalin fixed and paraffin embedded. 06/08/2024 4:53 PM EST [facility] Tissue Urine specimen from urethra / Unknown 05/24/2024 06/02/2024 9:26 AM EST us [facility] PATHOLOGY ORDERAB LES Final Result [facility] [address] [place] [address], documented in this encounter Visit Diagnoses Diagnosis Benign essential microscopic hematuria documented in this encounter Care Teams Guide Delegate Relationship Specialty Start Date End Date Samuel Chao MD [address] [place] [address] PCP - General Internal Medicine 05/08/19 documented as of this encounter
--- OUTSIDE RECORDS SUMMARY | 2025-06-15 18:44 | XMS_ITS | Clinical Summary ---
Author Organization [employer] Address [address] [facility] 7t [place] [address] Care Team Providers Care Dry Transfer Man Name Role Phone Unavailable Primary Care Provider [...] Years (1 of 1 - PCV) 11/26/2023 RSV Patients and Patients Aged 60 years or older (1 - Risk 50-74 years 1-dose series) 11/26/2023 Zoster Vaccines (1 of 2) 11/26/2023 COVID-19 Vaccine (3 - season) 2025 08/14/2020, 07/17/2020 Influenza Vaccine (#1) 2025 DTaP/Tdap/Td [...] Most Recently Relevant to Health Maintenance Insurance [facility]
--- OUTSIDE RECORDS SUMMARY | 2025-06-15 18:44 | XMS_ITS | Clinical Summary ---
Author Organization [facility] Prior to 12/02/[address] [place] [address] Care Team Providers Care Lock And Dam Equipment Repairer Name Role Phone Samuel Chao MD Primary Care Provider [phone] Allergies Active Allergy Reactions Criticality Noted Date [...] age to complete this topic Care Teams Lock And Dam Equipment Repairer Relationship Specialty Start Date End Date Samuel Chao MD PCP - General Internal Medicine 02/02/17
--- OUTSIDE RECORDS SUMMARY | 2025-06-15 18:45 | XMS_ITS | Encounter Summary ---
Author Organization [employer] Address [address] [facility] 7t [place] [address] Care Team Providers Care Health Information Specialist Name Role Phone Unavailable Primary Care Provider [...]
--- OUTSIDE RECORDS SUMMARY | 2025-06-15 18:45 | XMS_ITS | Encounter Summary ---
Author Organization [employer] Address [address] [facility] [address] [place] [address] Care Team Providers Care Buhr Mill Operator Name Role Phone Unavailable Primary Care Provider [...]
--- OUTSIDE RECORDS SUMMARY | 2025-06-15 18:45 | XMS_ITS | Clinical Summary ---
Author Organization [facility] Address [address] [place] [address] Phone Care Team Providers Care Coffee Supervisor Name Role Phone Samuel Chao MD [...] Encounters Date Type Department Care Team Description 06/01/2025 Telephone Gastroenterology - [address] [facility] [address] [facility] [address] [place] [phone] [place] 05/30/2025 Telephone Gastroenterology [facility] [address] [facility] [address] [facility] [address] [place] [address] Serafin Cui DO 05/28/2025 Telephone Gastroenterology [facility] [address] [facility] [address] [facility] [address] [place] [address] Serafin Cui DO from Last 3 Months Surgical History Surgery [...] on file Sexual Orientation Not on file Last Filed Vital Signs [...] Description 01/25/2026 11:00 AM EDT Office Visit [facility] Hematology Oncology [address] [place] [phone] Yara Cortes MD [address] [place] [address] Health Maintenance Due Date Last Done Comments Colorectal Cancer Screening: Colonoscopy 1973 Zoster Vaccines (1 of 2) 1992 COVID-19 Vaccine (3 - Modern a risk series) 09/11/2020 08/14/2020, 07/17/2020 Cholesterol Screening (Lipid Panel) 06/14/2022 HIV Screening 06/14/2022 Hepatitis C Screening 06/14/2022 Social Influencers of Health Screening 06/14/2022 Hypertension/CHF/CAD Annual BMP Blood Test 06/18/2022 Pneumococcal Vaccine: 50+ Years (1 of 1 - PCV) 11/26/2023 RSV Immunization Adult Patients (1 - Risk 50-74 years 1-dose series) 11/26/2023 Depression Screening 07/05/2024 Influenza Vaccine (#1) [...] patient's age to complete this topic Insurance [facility] PUBLIC [employer] Care Teams Coffee Supervisor Relationship Specialty Start Date End Date Samuel Chao MD [address] [place] [address] PCP - General Internal Medicine 05/08/19
--- OUTSIDE RECORDS SUMMARY | 2025-06-15 18:45 | XMS_ITS | Encounter Summary ---
Author Organization [employer] Address [address] [facility] 7[address] [place] [address] Care Team Providers Care Airplane Dispatcher Name Role Phone Unavailable Primary Care Provider [...]
== END 2025-06-15 13:09 | disposition home or self-care (01) ==
LOC: HO.BBR 13:08
PROVIDERS: Visit Provider Internal Medicine
DX: D45 Polycythemia vera (principal)
CPT/HCPCS: 85018; 99195